=== PATIENT | female | born 1945 | race Caucasian/White ===

== ENCOUNTER → 2017-01-11 | Outpatient (CLI) | payer MEDICARE, OTHER ==
[~2017-01-11] MED LIST: AGGRENOX1 CAP PO; ASPIRIN ENTERI325 M1 PO; BENAZEPRIL PO; CELEXA10 MG PO; CLOPIDOGREL75 MG PO; CRANBERRY TABLETS PO; CRANBERRY200 MG PO; DARVOCET-N 1001 TA1 PO; FISH OIL 1,0001 CAP PO; FISH OIL300 MG PO; HYDROCODONE-APA1 T56 PO; LIPITOR PO; LIPITOR20 MG PO; LOTREL PO; MELOXICAM7.5 MG PO; MIRAPEX PO; MOBIC PO; NEXIUM PO; NORVASC PO; PROPRANOLOL HCL10 MG PO; PROPRANOLOL PO; REQUIP1 MG PO; RESTASIS32 EA OP; ZOCOR PO; ZOLOFT PO; ZOLOFT50 MG PO
--- NOTE | ~2017-01-11 | MR17 ---
[facility] A Service of [facility] RADIOLOGY TEXT RESULTS PATIENT: LEON VERA LOCATION: [facility] : 45 UNIT #: [id number] AGE: [address]: BELGICA RODRIGUEZ APRN SEX: F ORDER DR: [id number] [facility] [address] [place], [place] [address] [id number] O MR#: [id number] Acc #: [id number] NAME: LEON VERA. : 1945 SEX: F STUDY DATE/TIME: 01/11/2017 17:55 UNIT: [facility] ROOM: STUDY DESCRIPTION: MR Brain WWo Contrast Attending Physician: Belgica Rodriguez Aprn Referring Physician: Belgica Rodriguez Aprn Ordering Physician: Belgica Rodriguez Aprn Primary Care Physician: Maciej Velez M.D. MRI CENTER REPORT This report is preliminary unless electronic signature is present. EXAM MRI brain with and without contrast HISTORY Cerebral infarct. History of numerous mini-strokes. On Monday01/01/2017, patient had an episode of sharp pain at right upper temporal area and felt right eye drawing. No numbness or weakness associated with the episode. Patient does have a history of breast cancer, stroke x2-3 years ago and 2 years ago also has a history of hypertension. COMMENT MRI of the brain was performed prior to and following intravenous administration of 15 mL of MultiHance. Comparison study 03/23/2016. There is no evidence for a recent ischemic insult on the diffusion series. No Chiari-I malformation. Redemonstrated is fairly extensive white matter disease which is nonspecific but likely due to small vessel disease. It is most confluent in the deep to periventricular white matter. Patchier signal abnormality seen in the david bilaterally more apparent posteriorly. There are bilateral basal ganglionic chronic lacunes and/or prominent perivascular spaces as well as a chronic focal lacunar insult to the right thalamus with associated malacic change, unchanged from prior study. The mastoid air cells are clear. The paranasal sinuses are clear. The patient has had cataract surgery bilaterally. The major intracranial flow voids are maintained. Following contrast administration, there is no pathologic intracranial enhancement or intracranial mass lesion or mass effect. IMPRESSION 1. No acute intracranial abnormality. 2. Redemonstration of fairly extensive probable sequelae of small vessel STS. [facility] A Service of [facility] RADIOLOGY TEXT RESULTS PATIENT: LEON VERA LOCATION: [facility] : 45 UNIT #: [id number] AGE: [address]: BELGICA RODRIGUEZ APRN SEX: F ORDER DR: disease not appreciably changed from 03/23/2016. 3. If there is clinical concern for a diagnosis of temporal arteritis, this MRI would not be sensitive for that pathology. Dictated by... Heydi Ochoa M.D. THIS IS AN ELECTRONICALLY VERIFIED REPORT Heydi Ochoa M.D. at 01/12/2017 12:14 PM EMMANUEL/taj TD: 01/12/2017 09:35 JOB #: [id number] MRI CENTER REPORT COPY
[2017-01-12 09:34] LABS: POC - CREATININE 1.04 mg/dL (0.44-1.03)
== END | disposition home or self-care (01) ==
LOC: CMRI 17:04
PROVIDERS: Nurse Practitioner Family
DX: I63.9 Cerebral infarction, unspecified (principal); R51 Headache; R20.2 Paresthesia of skin; R93.0 Abnormal findings on diagnostic imaging of skull and head, not elsewhere classified
CPT/HCPCS: 70553; 82565; A9577

== ENCOUNTER → 2017-05-23 | Outpatient (CLI) | payer MEDICARE, OTHER | END | disposition home or self-care (01) | LOC: CSSDAY 10:10 | DX: M81.0 Age-related osteoporosis without current pathological fracture (principal) | CPT/HCPCS: 82310; 96372; J0897 ==

== ENCOUNTER → 2017-07-10 | Outpatient (CLI) | payer MEDICARE, OTHER ==
--- NOTE | ~2017-07-10 | CT55 ---
[facility] A Service of [facility] RADIOLOGY TEXT RESULTS PATIENT: LEON VERA LOCATION: [facility] : 45 UNIT #: [id number] AGE: [address]: Marcelo Anne SEX: F ORDER DR: [id number] [facility] [address] [place], [place] [address] [id number] O MR#: [id number] [facility] #: [id number] NAME: LEON VERA : 1945 SEX: F STUDY DATE/TIME: 07/10/2017 10:43 UNIT: [facility] ROOM: STUDY DESCRIPTION: CT Chest W Con Attending Physician: Marcelo Anne M.D. Referring Physician: Marcelo Anne M.D. Ordering Physician: Marcelo Anne M.D. Primary Care Physician: Maciej Velez M.D. MEDICAL IMAGING REPORT This report is preliminary unless electronic signature is present EXAM CT chest with contrast, 07/10/2017 10:43 hours HISTORY 72-year-old woman with remote history of breast carcinoma complaining of dyspnea, coughing for [address], 01/30/[address] images were obtained from the thoracic inlet through the adrenal glands. Sagittal and coronal reconstructions were performed. Contrast was Isovue-370, 70 mL IV. Total exam DLP 587 mGy-cm. This CT exam was performed with one or more of the following radiation dose reduction techniques: automatic exposure control, adjustment of mA and/or kV according to patient size, and iterative reconstruction. FINDINGS Images through the thoracic inlet demonstrate no thyroid mass or supraclavicular adenopathy. Images through the chest demonstrate no pathologic mediastinal, hilar or axillary adenopathy. There is no pleural or pericardial fluid. Cardiac chambers are normal. The aorta is normal in caliber. The esophagus is normal. Lung window images demonstrate calcified granuloma in the posterior left upper lobe unchanged. There is calcified granuloma in the left lower lobe also stable. There is peripheral linear reticular subpleural density on the right where patient has had previous lumpectomy. This could represent scarring or perhaps chronic postradiation change. This is stable. There [facility] A Service of [facility] RADIOLOGY TEXT RESULTS PATIENT: LEON VERA LOCATION: [facility] : 45 UNIT #: [id number] AGE: [address]: Marcelo Anne SEX: F ORDER DR: are no acute pulmonary densities. No effusions. Limited views through the upper abdomen demonstrate mild fatty change in the liver. There is no focal liver or adrenal lesion. Bone window images demonstrate mild degenerative change of the lower thoracic spine. There is no fracture, lytic or blastic lesion. IMPRESSION 1. Stable chest CT as compared to 01/30/2012. There is no acute finding. 2. There is stable linear scarring in the anterior right midlung adjacent to the area of right lumpectomy most likely representing scarring or chronic postradiation change. 3. No bone lesions are seen. 4. Limited views through the upper abdomen demonstrate no liver or adrenal lesion. Dictated by... Deloris Cheng M.D. THIS IS AN ELECTRONICALLY VERIFIED REPORT Deloris Cheng M.D. at 07/11/2017 9:27 AM EVELYNE/nupur TD: 07/10/2017 17:30 JOB #: [id number] MEDICAL IMAGING REPORT Page 1 of 1 COPY
--- NOTE | ~2017-07-10 | CR65 ---
[facility] A Service of [facility] RADIOLOGY TEXT RESULTS PATIENT: LEON VERA LOCATION: [facility] : 45 UNIT #: [id number] AGE: [address]: Marcelo Anne SEX: F ORDER DR: [id number] [facility] [address] [place], [place] [address] [id number] O MR#: [id number] Acc #: [id number] NAME: LEON VERA. : 1945 SEX: F STUDY DATE/TIME: 07/10/2017 10:14 UNIT: [facility] ROOM: STUDY DESCRIPTION: CR Chest 2 View W Fluoro Attending Physician: Marcelo Anne M.D. Referring Physician: Marcelo Anne M.D. Ordering Physician: Marcelo Anne M.D. Primary Care Physician: Maciej Velez M.D. MEDICAL IMAGING REPORT This report is preliminary unless electronic signature is present EXAM Sniff test, 07/10/2017. COMPARISON Chest radiograph, 09/08/2016. PROCEDURE Study performed with a single fluoroscopic spot image and a total of 0.3 minutes of fluoroscopy. FINDINGS Persistent elevation of the right hemidiaphragm. Dynamic sniff test reveals paradoxical motion right hemidiaphragm consistent with right diaphragmatic paralysis. 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 Dictated by... Familia Mendieta M.D. THIS IS AN ELECTRONICALLY VERIFIED REPORT Familia Mendieta M.D. at 07/14/2017 4:09 PM WILL/malia TD: 07/10/2017 23:48 JOB #: [id number] MEDICAL IMAGING REPORT Page 1 of 1 COPY
[2017-07-10 12:11] LABS: POC - CREATININE 0.91 mg/dL (0.44-1.03); POC - GFR >60.0 mL/min (>60)
== END | disposition home or self-care (01) ==
LOC: CCAT 09:20
PROVIDERS: Internal Medicine
DX: R06.00 Dyspnea, unspecified (principal); J98.4 Other disorders of lung; Z98.890 Other specified postprocedural states
CPT/HCPCS: 71023; 71260; 82565; Q9967